=== PATIENT | male | born 1950 | race Caucasian/White ===

== ENCOUNTER 2021-05-18 07:07 | Day surgery (SDC) | payer BC ==
[~2021-05-18] VITALS: Ht 180.3 cm; Wt 102.5 kg
[~2021-05-18 07:07] MED LIST: ASPIRIN 81M81 MG/TA2 PO; ATENOLOL25 MG PO; ATIVAN 0.50.5 MG/TAB PO; BUSPAR 30MG30 MG/TAB PO; CEPHALEXIN500 M1 PO; MULTI-VIT W/C1 CTB PO; WELLBUTRIN XL300 MG PO
[2021-05-18] MEDS ORDERED: NORVASC 5MG5 MG/TAB PO (07:53)
[2021-05-18] MEDS ORDERED: WELLBUTRIN XL300 M1 PO (07:53)
[2021-05-18] MEDS ORDERED: TENORMIN 2525 MG/TAB PO (07:53)
[2021-05-18] MEDS ORDERED: ASPIRIN 81M81 MG/TA2 PO (07:53)
[2021-05-18] MEDS ORDERED: OMEGA-3 1000 MG1 CAP PO (07:54)
[2021-05-18] MEDS ORDERED: BUSPAR DIVIDOSE15 MG PO (07:54)
[2021-05-18] MEDS ORDERED: ATIVAN 0.50.5 MG/TAB PO (07:55)
[2021-05-18] MEDS ORDERED: IBU600 MG PO (07:55)
[2021-05-18] MEDS ORDERED: PRINIVIL20 MG PO (07:55)
[2021-05-18] MEDS ORDERED: ONE-A-DAY ESSE1 EACH PO (07:55)
[2021-05-18] MEDS ORDERED: FLOMAX 0.40.4 MG/CAP PO (07:56)
[2021-05-18 08:01] VITALS: BP 134/80; PULSE 58; TEMP 97.8
[2021-05-18 08:40] VITALS: BP 130/76; PULSE 50; TEMP 97.4
--- NOTE | 2021-05-18 08:45 | NUR ---
PATIENT TRANSPORTED PER CART FROM GI SUITE TO BAY 2 ACCOMPANIED BY HENRRY RN. PATIENT AMBULATED TO RESTROOM WITH STEADY GAIT WITH STAND BY ASSIST. PATIENT VOIDS WITHOUT PROBLEMS. VERBAL REPORT RECEIVED. MONITORS APPLIED. VSS ON ROOM AIR. IN ROOM. PATIENT GIVEN MUFFIN AND COFFEE.
[2021-05-18 09:05] VITALS: BP 132/65; PULSE 51
--- NOTE | 2021-05-18 09:05 | NUR ---
VSS ON ROOM AIR. PATIENT UP AND AMBULATES TO RESTROOM WITH STEADY GAIT. USES WITHOUT PROBLEMS. IN ROOM DOCTOR SPEAKS WITH PATIENT AND . PATIENT TOLERATES FOOD AND DRINK WITHOUT PROBLEMS.
[2021-05-18 09:15] VITALS: BP 124/80; PULSE 48
--- NOTE | 2021-05-18 09:20 | NUR ---
VSS ON ROOM AIR. PATIENT TALKS WITH . IV DC'D WITH CATHETER TIP INTACT. PRESSURE AND BANDAGE APPLIED. DISCHARGE INSTRUCTIONS GIVEN VERBAL AND DISCHARGE PACKET PROVIDED. QUESTIONS ANSWERED AND PATIENT AND VOICED UNDERSTANDING. PATIENT CHANGED INTO [place]ES. 0219 PATIENT DISCHARGED PER WHEEL CHAIR ACCOMPANIED BY AMB RN TO JAKOB MAXWELL.
== END 2021-05-18 09:28 | disposition home or self-care (01) ==
LOC: SDCO 07:07
DX: Z12.11 Encounter for screening for malignant neoplasm of colon (principal); D12.3 Benign neoplasm of transverse colon; K21.9 Gastro-esophageal reflux disease without esophagitis; K29.30 Chronic superficial gastritis without bleeding; K57.30 Diverticulosis of large intestine without perforation or abscess without bleeding; I10 Essential (primary) hypertension; I49.3 Ventricular premature depolarization; M19.90 Unspecified osteoarthritis, unspecified site; E66.9 Obesity, unspecified; F17.210 Nicotine dependence, cigarettes, uncomplicated; F32.9 Major depressive disorder, single episode, unspecified; F41.9 Anxiety disorder, unspecified; Z20.822 Contact with and (suspected) exposure to COVID-19; Z79.82 Long term (current) use of aspirin; Z79.899 Other long term (current) drug therapy; Z85.828 Personal history of other malignant neoplasm of skin; Z68.39 Body mass index [BMI] 39.0-39.9, adult
CPT/HCPCS: J2704; J7120